=== PATIENT | male | born 1970 | race Caucasian/White ===

== ENCOUNTER → 2018-08-22 09:13 | Outpatient (CLI) | payer OTHER, SELFPAY ==
--- NOTE | 2018-08-22 | IMM_PTH ---
PATIENT: ESTEBAN MADRIGAL LOC: [facility] U#:[id number] AGE/SX: 55/M ROOM: RE08/22/[address]: Garret Moreno MD : 1970 BED: DIS: SPEC #: [id number] RECD: 08/23/18 10:31 STATUS: PEREZ REQ #: [id number] DOROTHEA: 08/22/18 00:[address]: Garret Moreno DEPT: IMMUNOHISTOCHEMISTRY RECD BY: Nereyda Desouza ENTERED: 08/23/18 10:33 SP TYPE: IMMUNO OTHR DR: Dr. Eric Molina MD Tissues: Neck, NOS Procedures: CD138 (add) CD20 (add) CD3 (add) CD43 (add) CD45 (add) CD5 (add) CD79A (add) KI-67 (add) MACRO (add) P53 (add) Pankeratin (initial) PHYSICIAN & INSTITUTION [place] [id number] SPECIMEN INFORMATION: Tissue Source: Left neck cystic mass Clinical Info: Left neck cystic mass Specimen Number: [id number] CPT code: 87469, 99756 x10 METHODOLOGY: Deparaffinized sections of prefer/formalin-fixed tissue or PAP/DQ stained slides are incubated with monoclonal/polyclonal antibodies/oligonucleotide probes. Localization is made via biotin free immunoperoxidase method. Appropriate controls are performed and reacted as expected. Results on target cell population are indicated in the following table: RESULTS: ANTIBODY / CLONE RESULT AE1-3 (AE1/AE3/PCK26) negative CD3 (PS1) positive CD5 (SP10) positive CD20 (L26) positive CD43 (L60) positive CD45 (RP2/18) positive CD79a (11E3) positive CD138 (B-A38) negative Macro (HAM-56) positive, occasional Ki-67 (30-9) negative P53 (DO-7) negative These tests were developed and their performance characteristics determined by [facility]. They may not have been cleared or approved by the [place]. Food and Drug Administration. The FDA has determined that such clearance or approval is not necessary. INTERPRETATION: Left neck cystic mass, fine needle aspiration: Polytypic lymphoid population. AM:vasiliy 08/26/18 Comment: There is no evidence of a definitive lymphoid malignancy. Case has been reviewed in consultation with Dr. Hannah who concurs with the above diagnosis. IDC:ZARA
--- NOTE | 2018-08-22 | ASPIG_PTH ---
PATIENT: ESTEBAN MADRIGAL LOC: [facility] U#:[id number] AGE/SX: 55/M ROOM: RE08/22/[address]: Garret Moreno MD : 1970 BED: DIS: SPEC #: [id number] RECD: 08/22/18 10:43 STATUS: PEREZ REMina #: [id number] DOROTHEA: 08/22/18 00:[address]: Garret Moreno DEPT: CYTOLOGY RECD BY: Nico Meier ENTERED: 08/22/18 10:44 SP TYPE: ASP OUT OTHR DR: Dr. Eric Molina MD Tissues: Neck, NOS Procedures: Pap Stain (control) Special Stain Group II Surgery Specimen Level IV Diff Quik Stain (control) Cell Block Cytology Other Fine Needle Asp on Site HEADER OPERATION: Left neck cystic mass FNA PRE-OP DIAGNOSIS: Left neck cystic mass TISSUE SUBMITTED: Left neck cystic mass FNA DIAGNOSIS CYTOLOGY Fine needle aspiration, left neck cystic mass (smears and cell block): Consistent with contents of benign inflamed cyst. See cytology study and comment. AM:vasiliy 08/23/18 COMMENT The specimen is evaluated at the time of FNA by Dr. Gilbert. Immediate Evaluation = Polymorphous lymphocytes and occasional macrophages consistent with benign cyst. There was a near resolution of mass in neck post aspiration of 5.0cc of clear, light yellow cyst contents. Immunohistochemistry ([id number]) supports the above diagnosis. Case has been reviewed in consultation with Dr. Hannah who concurs with the above diagnosis. IDC:SJ CYTOLOGY STUDY Slides are reviewed. The specimen contains polymorphous lymphocytes and scattered macrophages. Rare degenerating epithelioid cells are seen. CYTOLOGY GROSS Received is 5 ml of clear yellow fluid labeled with the patient's name, and designated left neck cystic mass. Five imprints and five paps are made from the submitted fluid and the rest is added to CytoLyt for cell block preparation. Submitted for cytology study. / AM:vasiliy 08/22/18 TC:5 CPT: 73855, 70702, 14976, 85944
== END ==
PROVIDERS: Family Provider Family Medicine; PCP Family Medicine; Referring Provider Otolaryngology Otolaryngology/Facial Plastic Surgery; Visit Provider Otolaryngology Otolaryngology/Facial Plastic Surgery
DX: R22.1 Localized swelling, mass and lump, neck (principal)
CPT/HCPCS: 10021; 88161; 88172; 88305; 88313; 88341; 88342